=== PATIENT | female | born 1970 | race Native Hawaiian/Other Pacific Islander ===

== ENCOUNTER 2020-05-20 09:54 | Outpatient (CLI) | payer BC ==
[2020-05-20 10:50] LABS: POTASSIUM 4.2 mmol/L (3.6-5.2)
== END 2020-05-20 19:21 | disposition home or self-care (01) ==
LOC: LABW 09:54 → US 10:00 → LABW 19:21
PROVIDERS: ATTEND Family Medicine
DX: N28.9 Disorder of kidney and ureter, unspecified (principal); Z12.31 Encounter for screening mammogram for malignant neoplasm of breast; R59.1 Generalized enlarged lymph nodes
CPT/HCPCS: 36415; 80048